=== PATIENT | female | born 1995 | race Caucasian/White ===

== ENCOUNTER 2018-03-20 09:11 | Emergency (ER) | payer MEDICAID ==
[~2018-03-20] VITALS: Ht 154.9 cm; Wt 68.5 kg
[~2018-03-20 09:11] MED LIST: FERR-43 PO; PREN-88 PO
[2018-03-20 10:26] VITALS: BP 119/70
== END 2018-03-20 10:25 | disposition home or self-care (01) ==
LOC: ER 09:19
DX: S92.302D Fracture of unspecified metatarsal bone(s), left foot, subsequent encounter for fracture with routine healing (principal); Z88.5 Allergy status to narcotic agent; Z79.899 Other long term (current) drug therapy; X58.XXXD Exposure to other specified factors, subsequent encounter
CPT/HCPCS: 99281; Z7610

== ENCOUNTER 2020-01-19 15:33 | Emergency (ER) | payer MEDICAID ==
[~2020-01-19] VITALS: Ht 152.4 cm; Wt 91.7 kg
[2020-01-19 17:09] LABS: BASOPHILS % 0.5 % (0.0-2.0); EOSINOPHILS % 0.9 % (0.0-5.0); HEMATOCRIT. 47.5 % (36.0-48.0); LYMPHOCYTES % 22.4 % (20.0-50.0); MEAN CORPUSCULAR HEMOGLOBIN 30.7 pg (28.0-32.0); MEAN CORPUSCULAR VOLUME 91.1 fL (81.0-99.0); MEAN PLATELET VOLUME 8.4 fl (7.4-10.4); MONOCYTES % 6.2 % (2.0-8.0); PLATELET 300 x1000/uL (130-400); RED BLOOD CELL COUNT 5.22 mill/uL (4.2-5.4); RED CELL DISTRIBUTION WIDTH 12.8 % (11.6-14.6)
[2020-01-19 18:30] LABS: CLARITY URINE CLEAR (CLEAR); COLOR URINE YELLOW (YELLOW); KETONES URINE NEGATIVE (NEGATIVE); LEUKOCYTE ESTERASE URINE TRACE (NEGATIVE); NITRITE URINE NEGATIVE (NEGATIVE); OCCULT BLOOD URINE TRACE (NEGATIVE); PROTEIN URINE NEGATIVE (NEGATIVE); SPECIFIC GRAVITY URINE 1.009 (1.005-1.030); UROBILINOGEN URINE 0.2 E.U./dL (0.2-1.0)
[2020-01-19 19:09] LABS: CHLORIDE 104 mEq/L (98-107)
[2020-01-19 19:19] LABS: B-HCG QUANTITATIVE 566 mIU/mL (<3)
[2020-01-19 22:00] VITALS: BP 125/72
== END 2020-01-19 22:10 | disposition home or self-care (01) ==
LOC: ER 15:33
DX: O20.0 Threatened abortion (principal); O26.891 Other specified pregnancy related conditions, first trimester; I51.9 Heart disease, unspecified; Z3A.01 Less than 8 weeks gestation of pregnancy; Z98.890 Other specified postprocedural states; Z88.5 Allergy status to narcotic agent
CPT/HCPCS: 36415; 76801; 80053; 81003; 84702; 85025; 86900; 93005; 99285